=== PATIENT | female | born 1950 | race Caucasian/White ===

== ENCOUNTER 2024-10-08 11:21 | Emergency (ER) | payer MEDICARE, SELFPAY ==
[2024-10-08 11:25] VITALS: BP 155/83; PULSE 108; RESP 16; TEMP 36.7; O2SAT 98; BMI 25.4
--- NOTE | 2024-10-08 11:51 | XR_ITS ---
Examination: CT brain head without contrast. 2-D sagittal coronal reconstructions Date and time of exam:October 08, 2024 1217 hrs. Comparison April 18, 2021 Indications: Headache today History large soft tissue mass destroying base of the skull and the right mastoid air cells as well as the lateral margin on the right of the foramen magnum and occipital bone CTDI: vol (mGy):49.2 DLP: (mGycm):970 Technique: Multiple CT axial sections of the brain have been obtained, 5 mm slice thickness. Contrast has not been administered. 2-D sagittal, coronal reconstructions have been obtained Low dose protocols were performed. One or more of the following dose reduction techniques were used; automated exposure control, adjustment of the mA and/or KV according to patient size, use of iterative reconstruction technique. Findings: Large areas of bone destruction and probable surgical change involving right mastoid air cells, right occipital bone, foramen magnum on the right side extending to the anterior margin of the right temporal articulating fossa The soft tissue tumor noted on the 04/18/2021 exam is not clearly identified on the current examination The fourth ventricle is midline There is no ventricular enlargement No midline shift No acute hemorrhage either intra or extra-axial Impression: Large areas of bone destruction and probable surgical change involving right mastoid air cells right occipital bone right foramen magnum on the right side extending to the anterior margin of the right temporal articulating fossa No obvious recurrent soft tissue tumor at this site However, consider brain MRI follow-up, pre and postcontrast to best exclude any residual or recurrent tumor
--- NOTE | 2024-10-08 11:52 | EDRME_ITS ---
Rapid Medical Screening Exam [facility] Arrival date/time: 10/08/24 11:21 74 yo f present to ED for c/o headache for 3 days. I have greeted and performed a focused initial assessment of this patient. A comprehensive ED assessment and evaluation of the patient, analysis of all test results, and completion of the medical decision making process will be conducted by additional ED providers. Chief Complaint: Headache Time Seen by Provider: 10/08/24 11:48 Vital signs: Vital Signs Temperature 98.0 F 10/08/24 11:25 Pulse Rate 108 H 10/08/24 11:25 Respiratory Rate 16 10/08/24 11:25 Blood Pressure 155/83 H 10/08/24 11:25 Pulse Oximetry (%) 98 10/08/24 11:25 Oxygen Delivery Method Room Air 10/08/24 11:25
--- NOTE | 2024-10-08 14:33 | PRELIM_ITS ---
CT scan of the head without intravenous contrast (axial sections with sagittal and coronal reformats) October 08, 2024 1226 hours Clinical history: headache for 3 days Comparison: No prior study is available for comparison at the time of interpretation Findings: There is no evidence of intracranial hemorrhage, mass effect or midline shift. There are periventricular white matter hypodensities, compatible with chronic small vessel ischemia. There is moderate volume loss. The calvarium is unremarkable. Retention cysts or polyps are noted in the left maxillary and left sphenoid sinuses.The left mastoid air cells and the other visualized paranasal sinuses are clear. Postoperative changes versus lytic lesions are noted in the right mastoid. Impression: No evidence of intracranial hemorrhage, mass effect or midline shift. Periventricular chronic small vessel ischemia and volume loss. Report Electronically Signed By: Luis Wolff 10/08/2024 2:31:53 PM [EST]
[2024-10-08 16:02] VITALS: BP 178/86; PULSE 79; RESP 18; TEMP 36.8; O2SAT 96
--- NOTE | 2024-10-08 16:18 | EDNOTE_ITS ---
ED Headache RME/HPI General Chief Complaint: Headache Stated Complaint: HEADACHE X2 DAYS Time Seen by Provider: 10/08/24 11:48 Arrival date/time: 10/08/24 11:21 RME / HPI RME / HPI Narrative: 10/08/24 11:21 74 yo f present to ED for c/o headache for 3 days. I have greeted and performed a focused initial assessment of this patient. A comprehensive ED assessment and evaluation of the patient, analysis of all test results, and completion of the medical decision making process will be conducted by additional ED providers. DR. CASTELLANOS MAIN ED EVALUATION: 74 year old female presents to the Emergency Department with complaints of headache and back of the neck pain onset 3 days. Pain is described as aching and rated moderate in severity. Movement exacerbates the pain. No trauma or other symptoms reported. She states she usually gets sinus headaches, last one 3 weeks ago, which usually resolve with allergy medications. PMHx: Right superficial paratidectomy with facial nerve dissection on 07/13/[address] Farfan. Social Hx: No tobacco, alcohol, or substance use. PCP: [facility] Related Data Home Medications ?Medication ?Instructions ?Recorded ?Confirmed hydrochlorothiazide 25 mg tablet 25 mg PO QAM #0 tabs 07/10/17 01/29/19 levothyroxine 88 mcg tablet 88 mcg PO QDAY 01/29/19 Previous Rx's ?Medication ?Instructions ?Recorded ibuprofen 800 mg tablet (IBU) 800 mg PO TID #30 tabs 0 01/29/19 tramadol 50 mg tablet 50 mg PO Q6H PRN pain #15 ta bs 04/05/19 diazepam 5 mg tablet 5 mg PO BID PRN muscle spasm #6 10/08/24 tabs Allergies Allergy/AdvReac Type Severity Reaction Status Date / Time guaifenesin Allergy Severe SWELLING Verified 10/08/24 11:27 Sulfa (Sulfonamide Allergy Severe Hives Verified 10/08/24 11:27 Antibiotics) Penicillins Allergy Mild Rash Verified 10/08/24 11:27 latex Allergy Unknown Rash Verified 10/08/24 11:27 codeine AdvReac Severe Vomiting Verified 10/08/24 11:27 hydromorphone AdvReac Intermediate PAIN, Verified 10/08/24 11:27 VOMITING morphine AdvReac Intermediate PAIN, Verified 10/08/24 11:27 VOMITING Review of Systems Review of Systems Systems Reviewed: All systems reviewed, normal except as documented Narrative Review of Systems: GEN: No fever, no chills, no weight loss EYES: No discharge, no visual changes, no pain HEENT: No ear pain, no congestion, no sore throat PULM: No shortness of breath, no cough, no congestion CV: No chest pain, no dyspnea on exertion, no palpitations GI: No nausea, no vomiting, no diarrhea, no pain, no constipation : No frequency, no urgency and no dysuria MUSC/SKEL: + back of the neck pain, no back pain SKIN: No rash PSYCH: No hallucinations, no depression HEME/LYMPH: No easy bleeding or bruising tendencies NEURO: No weakness, + headache Past Medical History Past Medical History OTHER HISTORY: Positive Blood Transfusions Social History SMOKING STATUS: Never smoker SUBSTANCE USE: does not use ALCOHOL: Never ED Exam Narrative Physical exam: GENERAL APPEARANCE: AxOx4, generally well-appearing, no acute distress. HEENT: NC, AT. MMM. EOMI, clear conjunctiva, oropharynx clear. NECK: No lymphadenopathy. Limited ROM, up and down; greater and lesser occipital foramen with discreetly muscle tension. HEART: Normal rate and regular rhythm, normal S1/S1, no m/r/g LUNGS: CTAB, moving air well. No crackles or wheezes are heard. ABDOMEN: Soft, nontender, nondistended with good bowel sounds heard. BACK: No midline C/T/L spine pain or deformity. EXTREMITIES: Without cyanosis, clubbing or edema. MUSCULOSKELETAL: FROM of all major joints, no chest tenderness NEUROLOGICAL: Dense right hemiplegia. Right hand dominant. Skin: Warm and dry without any rash. Course Course Course Narrative: Patient notes improvement of headache with ketorolac and metoclopramide. Patient remained neurologically intact with out lateralizing signs. Quality Measures none Orders Category Date Time Status CT cervical spine wo con Stat Exams 10/08/24 16:[address] head/brain wo con Stat Exams 10/08/24 11:51 Completed Ketorolac Inj [Toradol Inj] Med 10/08/24 16:20 Discontinued 30 mg IM X1 ONE Metoclopramide Inj [Reglan Inj] Med 10/08/24 16:20 Discontinued 10 mg IM X1 ONE Vital Signs Vital signs: Vital Signs Temperature 98.0 F 10/08/24 11:25 Pulse Rate 108 H 10/08/24 11:25 Respiratory Rate 16 10/08/24 11:25 Blood Pressure 155/83 H 10/08/24 11:25 Pulse Oximetry (%) 98 10/08/24 11:25 Oxygen Delivery Method Room Air 10/08/24 11:25 Headache MDM Narrative MDM Narrative:: I, Danyell Squires am scribing for and in the presence of Dr. Castellanos. 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 How is presenting disease/condition affected by chronic disease/condition?: exacerbated by Evaluation data The following diagnostics were reviewed and interpreted by me:: radiology exam(s) Lab and/or radiology exams considered but not ordered:: none Interpretation Summary: Procedure(s): CT head/brain wo con Accession Number(s): [id number] cc: Shannan Lugo MD; Rajan Kemp MD; Melvin Sol PA-C~ Examination: CT brain head without contrast. 2-D sagittal coronal reconstructions Date and time of exam:October 08, 2024 1217 hrs. Comparison April 18, 2021 Indications: Headache today History large soft tissue mass destroying base of the skull and the right mastoid air cells as well as the lateral margin on the right of the foramen magnum and occipital bone CTDI: vol (mGy):49.2 DLP: (mGycm):970 Technique: Multiple CT axial sections of the brain have been obtained, 5 mm slice thickness. Contrast has not been administered. 2-D sagittal, coronal reconstructions have been obtained Low dose protocols were performed. One or more of the following dose reduction techniques were used; automated exposure control, adjustment of the mA and/or KV according to patient size, use of iterative reconstruction technique. Findings: Large areas of bone destruction and probable surgical change involving right mastoid air cells, right occipital bone, foramen magnum on the right side extending to the anterior margin of the right temporal articulating fossa The soft tissue tumor noted on the 04/18/2021 exam is not clearly identified on the current examination The fourth ventricle is midline There is no ventricular enlargement No midline shift No acute hemorrhage either intra or extra-axial Impression: Large areas of bone destruction and probable surgical change involving right mastoid air cells right occipital bone right foramen magnum on the right side extending to the anterior margin of the right temporal articulating fossa No obvious recurrent soft tissue tumor at this site However, consider brain MRI follow-up, pre and postcontrast to best exclude any residual or recurrent tumor Dictated By: Rajan Kemp MD Procedure(s): CT cervical spine con Accession Number(s): [id number] cc: Shannan Lugo MD; Vinh Castellanos MD; Rajan Kemp MD~ Examination: CT cervical spine without contrast 2-D sagittal reconstructions 2-D coronal reconstructions 3-D reconstructions. Exam date and time:October 08, 2024 1833 hrs. Indications: Onset neck pain this week, history soft tissue tumor destroying the basis: The right side on CT brain study 04/18/2021 CTDI:vol (mGy) 12.3 DLP: (mGycm) 383 Technique: Multiple 2 mm axial sections of the cervical spine have been obtained. The coronal and sagittal reconstructions have been obtained. 3-D reconstructions have been obtained. Low dose protocols were performed. One or more of the following dose reduction techniques were used; automated exposure control, adjustment of the mA and/or KV according to patient size, use of iterative reconstruction technique. Findings: Axial sections demonstrate intact base of the skull. C1 exhibit satisfactory relationship to the odontoid. No acute cervical vertebral body fracture seen. Alignment posterior spinous processes satisfactory. Again noted prominent bone destruction involving the right mastoid air cells, right occipital bone, right foramen magnum extending anteriorly to the temporal articulating fossa Impression: No acute cervical fracture. Large area of bone destruction at the base of the skull to the right side including right foramen magnum, right mastoid air cells Brain MRI follow-up pre and postcontrast would best assess for residual or recurrent tumor at the base of the skull Dictated By: Rajan Kemp MD Medications / Prescriptions Medications or Prescriptions considered but not ordered:: none Medication administrations:: Medication Administration History Discontinued Medications Ketorolac Tromethamine (Ketorolac Inj 60 Mg/2 Ml Vial) 30 mg IM X1 ONE Stop: 10/08/24 16:21 Last Admin: 10/08/24 16:41 Dose: 30 mg Documented By: DO Metoclopramide HCl (Metoclopramide Inj 5 Mg/Ml Vial 2 Ml) 10 mg IM X1 ONE; Protocol Stop: 10/08/24 16:21 Last Admin: 10/08/24 16:42 Dose: 10 mg Documented By: DO see above if any Consultations Consultation(s) initiated? (list below): No Diagnosis Differential diagnosis headache: migraine, tension headache, headache, sinusitis and other (neck pain, neck strain) Most likely diagnosis given after review of the tests above:: Headache Cervical myofascial strain Admission Indicated Admission indicated?: not indicated Admission Request Was there a request for admission?: No Disposition Plan Disposition Plan: Discharge Discharge Attestation Discharge Attestation: The patient and all family members were given an opportunity to ask questions and understood the discharge instructions. Discharge instructions specifically effects, indications for sooner follow up or return to the emergency department, and the expected course of current diagnosis. Patient condition: Stable Discharge Plan Plan Patient Disposition: HOME (Self Care) Prescriptions/Referrals Prescriptions/Med Rec: New diazepam 5 mg tablet 5 mg PO BID PRN (Reason: muscle spasm) Qty: 6 0RF No Action hydrochlorothiazide 25 MG tablet 25 mg PO QAM Qty: 0 levothyroxine 88 mcg Tablet 88 mcg PO QDAY ibuprofen [IBU] 800 mg tablet 800 mg PO TID Qty: 30 0RF tramadol 50 mg tablet 50 mg PO Q6H PRN (Reason: pain) Qty: 15 0RF Referrals: Shannan Lugo MD [Primary Care Provider] - In 1 week Problem List Clinical Impression: Headache, Cervical myofascial strain Patient/Caregiver Discharge Instructions Education Materials: ED Headache, Tension, ED Neck Sprain or Strain Additional Instructions: Your CT scan of the neck shows no major injury of your neck bones. Follow-up your primary doctor in 2-3 days for recheck. You can return to the emergency department sooner if symptoms worsen or for any new or concerning issues. Print Language: Uzbek Stand Alone Forms: Sirena Award Info., Patient Portal Info Letter
[2024-10-08] MEDS: KETOROLAC INJ 60 MG/2 ML VIAL 30 MG IM (16:41)
[2024-10-08] MEDS: METOCLOPRAMIDE INJ 5 MG/ML VIAL 2 ML 10 MG IM (16:42)
== END 2024-10-08 17:22 | disposition home or self-care (01) ==
PROVIDERS: Emergency Provider Emergency Medicine; PCP Internal Medicine
DX: S16.1XXA Strain of muscle, fascia and tendon at neck level, initial encounter (principal); M89.8X8 Other specified disorders of bone, other site; X58.XXXA Exposure to other specified factors, initial encounter
CPT/HCPCS: 70450; 72125; 96372; 99284; J1885; J2765

== ENCOUNTER → 2024-12-01 | Outpatient (CLI) | payer MEDICARE, SELFPAY ==
--- NOTE | 2024-12-01 08:00 | XR_ITS ---
Examination: MRI of brain without intravenous contrast. MRI brain with intravenous contrast. Date and time of exam:December 01, 2024 0814 hours Comparison August 24, 2020 INDICATIONS: History large enhancing soft tissue tumor mass bases: Right-sided right cerebellopontine angle destroying most of the mastoid air cells, measuring at least 3.5 x 2.6 x 3.3 cm as well as 5 mm enhancing lesion left brainstem Technique: Multiple axial and sagittal images of the brain to been obtained. Siemens high-resolution 1.52 Nicole short bore scanner utilized. Sagittal sections, T1 weighted images, TR 500, TE 14, are performed. Axial sections proton-density and T2-weighted images have been obtained. Inversion recovery axial images, TR 9260, TE 111, TR 2500. Diffusion weighted images, axial sections, TR 4800, TE 128, B value 1000. Axial sections, ADC map, TR 4800, TE 128. Axial and coronal images were also obtained post 13 cc gadolinium administered intravenously. Findings:: Enlargement of the sella turcica is not present. The optic chiasm and infundibular stalk are not remarkable. There is no localized enlargement of the medulla or nancy. Fourth ventricle and cerebellar tonsils appear normal in position. No subacute area of hemorrhage density is seen. Fourth ventricle is midline. Mass in the cerebellopontine angle region is not evident. 7th and 8th nerve complexes exhibit symmetry Globes are symmetrical Orbital musculature including medial lateral rectus muscles do not exhibit abnormality Increased white matter signal is moderate Effacement of the cortical sulcal markings is not identified. Mass effect upon the ventricular system is not identified. Diffusion-weighted images demonstrate no focus of restricted diffusion Contrast images demonstrate currently demonstrate large enhancing mass replacing the right mastoid air cells, extending into the right cerebellopontine angle measuring 4.8 x 3.0 x 4.3 cm as well as mass enhancing in the left cerebellopontine angle measuring 25 x 19 x 11 mm The ventricles are not enlarged No midline shift Impression: Large bilateral enhancing masses in the cerebellopontine angles as above
--- NOTE | 2024-12-01 08:45 | XR_ITS ---
Examination: MRI cervical spine, without intravenous contrast. MRI cervical spine , with intravenous contrast. Exam date and time: December 01, 2024 0814 hours INDICATIONS: Headaches years, history brain tumor Technique: Multiple axial, sagittal and coronal images of the cervical spine have been obtained with the Siemens high-resolution 1.5 Nicole MRI scanner. Images obtained included T2 weighted fat suppressed sagittal sections, TR 3500, TE 46, T2 weighted coronal fat suppressed images, TR 3050, TE 84, T2-weighted transverse fat suppressed images, TR 30-60, TE 63, proton density transverse images, TR 4720, TE 46, and T1 weighted coronal images, TR 560, TE 13. Axial, sagittal and coronal images are obtained post intravenous injection 13 cc gadolinium. Findings: Marked left thyromegaly with poorly defined thyroid nodules Adequate alignment cervical vertebral bodies Diffuse cervical disc desiccation No cervical fracture Advanced disc narrowing C6-C7 No localized enlargement cervical cord C2-C3 no disc protrusion C3-C4 mild left neural foraminal stenosis C4-C5 mild left neural foraminal stenosis C5-C6 moderate left neural foraminal stenosis C6-C7 2 mm central subarticular osteophyte disc complex, moderate left neural foraminal stenosis C7-T1 no disc protrusion Postcontrast images demonstrate no abnormal cervical vertebral body epidural or cervical cord enhancement, please see the MRI brain report follow-up IMPRESSION: Marked thyromegaly with thyroid nodules Advanced degenerative disc disease C6-C7 C5-C6, C6-C7 moderate left neural foraminal stenosis
== END | disposition home or self-care (01) ==
PROVIDERS: PCP Internal Medicine; Referring Provider Internal Medicine; Visit Provider Internal Medicine
DX: R22.0 Localized swelling, mass and lump, head (principal); E01.0 Iodine-deficiency related diffuse (endemic) goiter; M50.323 Other cervical disc degeneration at C6-C7 level; M48.02 Spinal stenosis, cervical region
CPT/HCPCS: 70553; 72156; A9579

== ENCOUNTER 2024-12-28 13:07 | Outpatient (RCR) | payer MEDICARE, SELFPAY ==
--- NOTE | 2024-12-29 14:18 | CTCCONSULT_ITS ---
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 Jorgito Saldivar, PCP [facility] Reason for consultation. Large bilateral enhancing mass in the cerebellopontine angles. History of Present Illness: Patient is a 74-year-old lady who underwent right parotidectomy and postop radiation therapy performed at [facility] 2020. We do not have information on the pathology or the exact surgery or radiation therapy at this time. Preop MRI done at [facility] however 06/24/2021 revealed soft tissue tumor mass at base of skull on the right side right cerebellopontine angle destroying much of the right mastoid air cells. Patient was well until recently when she developed headaches, and CT of the brain 10/08/2024 revealed large area of bone destruction and surgical changes right mastoid air cells right occipital bone right a 4 mm magnum on the right side extending in to the anterior margin of the right temporal articular fossa. Brain MRI 12/01/2024 revealed large bilateral enhancing masses in the cerebellopontine angles measuring 4.8 x 3.0 x 4.3 cm on the right as well as mass in the left measuring 25 x 19 x 11 cm. Patient is on pain medications with only partial relief and is now referred for to the cancer treatment center. Past Medical History: Right parotidectomy and postop radiation therapy [facility] late 2020. High blood pressure tonsillitis ear infections Meds. Levothyroxine oxycodone tinazidine Voltaren Allergies codeine penicillin Robitussin sulfa drug benazepril Family history. 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 No neck nodes felt CV: Chest clear to auscultation heart regular rate and rhythm ABD: Soft no organomegaly or tenderness EXT: No signs of clubbing or edema. 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 Treated with surgery and postop radiation at [facility] then. 2. Current MRI shows large bilateral masses at the cerebellopontine region. 3. Get surgery and radiation records from [facility]. 4. Neurosurgery consultation for biopsy and possible debulking. 5. Will keep you informed of her progress. Thank you for allowing me to evaluate this patient. Cc: [facility] Electronically signed by: Darion Luciano MD, DABR 12/28/2024 2:41 PM
== END 2025-01-07 23:59 | disposition home or self-care (01) ==
LOC: SCTC 13:07
PROVIDERS: PCP Internal Medicine; Referring Provider Internal Medicine; Visit Provider Radiology Therapeutic Radiology
DX: R22.0 Localized swelling, mass and lump, head (principal); M89.8X8 Other specified disorders of bone, other site
CPT/HCPCS: 99213; G0463

== ENCOUNTER 2025-02-02 13:18 | Outpatient (RCR) | payer MEDICARE, SELFPAY ==
--- NOTE | 2025-02-02 13:49 | CTCFLWUP_ITS ---
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 Patient initially seen 12/28/2024 for soft tissue tumor mass at the base of the skull on the right side right cerebellopontine angle destroying much of the right mastoid air cells. The brain MRI 12/01/2024 revealed bilateral enhancing masses in the cerebellar pontine angles measuring 4.8 x 3.0 x 4.3 cm on the right as well as mass in the left measuring 2.5 x 1.9 x 1.1 cm. 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 PET scan 03/27/2022 indicated likely post radiation changes, tumor bed site and persistent left thyroid gland uptake, possibly related to prior thyroid ultrasound noted nodule. Chemotherapy was briefly discussed but not strongly recommended and patient stated that she would refuse in any case. As I see her today patient appears surprisingly comfortable and stated that she is not even needing any pain pills at this time. Her preference was to watch every 3 months or so and getting needed scans and declines any further workup at this time. Electronically signed by: Darion Luciano M.D. 02/02/2025 1:47 PM
== END 2025-02-06 23:59 | disposition home or self-care (01) ==
LOC: SCTC 13:18
PROVIDERS: PCP Internal Medicine; Referring Provider Internal Medicine; Visit Provider Radiology Therapeutic Radiology
DX: R22.0 Localized swelling, mass and lump, head (principal); Z85.858 Personal history of malignant neoplasm of other endocrine glands; Z92.3 Personal history of irradiation
CPT/HCPCS: 99213; G0463

== ENCOUNTER 2025-02-27 13:10 | Outpatient (RCR) | payer MEDICARE, SELFPAY ==
--- NOTE | 2025-02-15 14:28 | CTCFLWUP_ITS ---
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 Patient with recurrent carcinoma of the right parotid, myoepithelial [id number] Surgery and postop XRT at [facility] 12/27/2021. Patient clearly has a recurrence based on the most recent MRI 12/01/2024. On the last visit patient states that she wanted nothing done for this but has since changed her mind but insists on going to [facility] where she had her surgery and postop radiation. Told her due to regulation she must go to [place]. I will make an attempt to refer her to [facility] which is understandably the logical choice for her, the place for her prior surgery and radiation. In the meantime I have reviewed her Decadron. Patient is follow-up with me in 2 months. Electronically signed by: Darion Luciano M.D. 02/15/2025 2:26 PM
== END 2025-03-09 23:59 | disposition home or self-care (01) ==
LOC: SCTC 13:10
PROVIDERS: PCP Family Medicine; Referring Provider Radiology Therapeutic Radiology; Visit Provider Radiology Therapeutic Radiology
DX: C71.7 Malignant neoplasm of brain stem (principal); R11.0 Nausea; Z92.3 Personal history of irradiation
CPT/HCPCS: 99212; 99213; G0463